=== PATIENT | female | born 1995 | race African-American/Black ===

== ENCOUNTER 2016-04-25 06:08 | Emergency (ER) | payer OTHER ==
[~2016-04-25] VITALS: Ht 170.2 cm; Wt 80.9 kg
[~2016-04-25 06:08] MED LIST: CARAFATE1 GM PO; FIORICET,ESG1 TABLET PO; PEPCID20 MG PO
[2016-04-25 06:33] LABS: HEMATOCRIT 42.1 % (36.0-46.0); MCH 28.5 PG (29.0-34.0); MEAN PLAT.VOLUME 10.5 uM^3 (9.5-12.4); PLATELET COUNT 243 K/uL (156-360); RBC DIS.WIDTH-CV 14.1 % (11.8-14.6); RBC DIS.WIDTH-SD 42.3 % (39-53); RED BLOOD COUNT 5.01 M/uL (3.80-5.20)
[2016-04-25 06:34] LABS: WHITE BLOOD COUNT 5.8 K/uL (4.1-10.2)
[2016-04-25 06:39] LABS: CHLORIDE 107 mEq/L (99-109); POTASSIUM 3.5 mEq/L (3.7-5.4); SODIUM 139 mEq/L (136-147)
[2016-04-25 06:42] LABS: GLUCOSE 92 mg/dL (70-99)
[2016-04-25 06:43] LABS: ANION GAP 9 MEQ/L (2-14)
[2016-04-25 06:45] LABS: ALKALINE PHOSPHATASE 52 IU/L (3-129); GFR ESTIMATE (CALCULATED) > 59 mL/min/
[2016-04-25 06:46] LABS: UREA NITROGEN (BUN) 6 mg/dL (9-23)
[2016-04-25 06:54] LABS: QUANTITATIVE HCG < 4.0 MIU/ML
[2016-04-25 07:04] LABS: TOTAL BILIRUBIN 0.3 mg/dL (0.0-1.0)
[2016-04-25 07:55] VITALS: BP 105/62
[2016-04-25] MEDS ORDERED: ZOFRAN ODT4 MG PO (09:41)
== END 2016-04-25 07:57 | disposition home or self-care (01) ==
LOC: EME 06:08
DX: R11.2 Nausea with vomiting, unspecified (principal); R19.7 Diarrhea, unspecified; R42 Dizziness and giddiness; F17.200 Nicotine dependence, unspecified, uncomplicated
CPT/HCPCS: 80053; 81003; 84702; 85027; 99281; 99284; J2405; J7030

== ENCOUNTER 2017-09-02 15:50 | Emergency (ER) | payer OTHER ==
[~2017-09-02] VITALS: Ht 170.2 cm; Wt 95.4 kg
[~2017-09-02 15:50] MED LIST changes: +ZOFRAN ODT4 MG PO
[2017-09-02 16:54] LABS: HEMATOCRIT 40.1 % (36.0-46.0); HEMOGLOBIN 13.6 G/DL (11.9-15.5); MCH 29.4 PG (29.0-34.0); MCHC 33.9 G/DL (30.0-36.0); MCV 86.8 FL (83-99); PLATELET COUNT 282 K/uL (156-360); RBC DIS.WIDTH-CV 13.8 % (11.8-14.6); RBC DIS.WIDTH-SD 43.9 % (39-53); RED BLOOD COUNT 4.62 M/uL (3.80-5.20); WHITE BLOOD COUNT 15.1 K/uL (4.1-10.2)
[2017-09-02 16:58] LABS: APPEARANCE CLEAR ((CLEAR)); BILIRUBIN NEGATIVE; BLOOD NEGATIVE; COLOR YELLOW ((YELLOW)); GLUCOSE (STRIP) NEGATIVE; KETONES NEGATIVE; LEUKOCYTES NEGATIVE; NITRITE NEGATIVE; PROTEIN (STRIP) NEGATIVE; UCUL ADDED? NO; UROBILINOGEN 0.2 MG/DL (0.2-1.0)
[2017-09-02 17:02] LABS: ALBUMIN 4.5 g/dL (3.2-4.8)
[2017-09-02 17:03] LABS: CHLORIDE 102 mEq/L (99-109); POTASSIUM 4.2 mEq/L (3.7-5.4); SODIUM 136 mEq/L (136-147)
[2017-09-02 17:05] LABS: GLUCOSE 93 mg/dL (70-99); TOTAL PROTEIN 8.1 g/dL (6.4-8.3)
[2017-09-02 17:07] LABS: TOTAL BILIRUBIN 0.6 mg/dL (0.0-1.0)
[2017-09-02 17:08] LABS: ALKALINE PHOSPHATASE 53 IU/L (3-129)
[2017-09-02 17:09] LABS: CREATININE 0.8 mg/dL (0.6-1.3); GFR ESTIMATE (CALCULATED) > 59 mL/min/
[2017-09-02 17:10] LABS: AST (GOT) 20 IU/L (2-34); UREA NITROGEN (BUN) 9 mg/dL (9-23)
[2017-09-02 17:12] LABS: ALT (GPT) 21 IU/L (3-49)
[2017-09-02 17:17] LABS: QUANTITATIVE HCG < 4.0 MIU/ML
[2017-09-02] MEDS ORDERED: MOTRIN800 MG PO (18:00)
[2017-09-02 18:37] VITALS: BP 120/62
== END 2017-09-02 18:47 | disposition home or self-care (01) ==
LOC: EME 15:50 → RME 15:50
PROVIDERS: Nurse Practitioner Family
DX: B34.9 Viral infection, unspecified (principal); R00.0 Tachycardia, unspecified; F17.200 Nicotine dependence, unspecified, uncomplicated
CPT/HCPCS: 71046; 80053; 81003; 84702; 85027; 99281; 99284